=== PATIENT | female | born 1945 | race Caucasian/White ===

== ENCOUNTER 2016-07-02 05:46 | Day surgery (SDC) | payer OTHER ==
[~2016-07-02] VITALS: Ht 154.9 cm; Wt 74.9 kg
[2016-07-02 06:27] VITALS: Ht 154.9 cm; Wt 74.9 kg
[2016-07-02] MEDS ORDERED: MINO2.5T16 PO (06:45)
[2016-07-02] MEDS ORDERED: IBUP-1542 PO (06:45)
[2016-07-02] MEDS ORDERED: OMEP40CA6 PO (06:45)
[2016-07-02] MEDS ORDERED: MTF1000T PO (06:45)
[2016-07-02] MEDS ORDERED: LOSA1TAB19 PO (06:45)
[2016-07-02] MEDS ORDERED: NORT10CA2 PO (06:45)
[2016-07-02] MEDS ORDERED: GLIP-95 PO (06:45)
[2016-07-02 07:12] VITALS: BP 133/66; PULSE 78; RESP 15
[2016-07-02 07:35] VITALS: BP 139/63; PULSE 76; RESP 12
[2016-07-02 08:01] VITALS: BP 111/60; PULSE 84; RESP 20
--- NOTE | 2016-07-02 08:29 | GILP ---
DATE OF PROCEDURE: NAME OF PROCEDURES: Esophagogastroduodenoscopy and biopsy. SURGEON: Alexis Manuel MD PREOPERATIVE DIAGNOSIS: Abdominal pain. POSTOPERATIVE DIAGNOSES: 1. Gastroesophageal reflux disease. 2. Gastritis with erosions. 3. Gastric mucosal biopsies were taken for Helicobacter pylori test. INDICATION FOR THE PROCEDURE: Ms. Xena Luna is a 71-year-old female patient who had upper abdomi nal pain, not responding to therapy. Patient was scheduled for endoscopic examination for further e valuation. The procedure and possible complications were well explained to the patient, she understood and cons ented to the procedure. DESCRIPTION OF PROCEDURE: Under the influence of fentanyl and Versed, the gastroscope was carefully introduced into the esophagus and under direct vision, it was advanced to the stomach and through t he pylorus into the duodenal bulb and descending duodenum. FINDINGS: ESOPHAGUS: The patient had gastroesophageal reflux disease. STOMACH: The patient had gastritis with erosions. Gastric mucosal biopsies were taken for H. pylor i test. DUODENUM: Normal. The patient tolerated the procedure very well and there was no complication from the procedure. At the end of the procedures, she was awake with stable vital signs and she was discharged home to the care of her family. IMPRESSION: 1. Gastroesophageal reflux disease. 2. Gastritis with erosions. 3. Gastric mucosal biopsies were taken for Helicobacter pylori test. PLAN: 1. Continue omeprazole. 2. Add Zantac 300 mg p.o. at bedtime. 3. Await H. pylori test report. Dictated By: ALEXIS SHERIFF/JO-ANN Conf#: [id number] DID#: [id number]
[2016-07-02] MEDS ORDERED: FENTAnyl 50 MCG/ML VIAL ONE (09:45)
[2016-07-02] MEDS ORDERED: MIDAZOLAM 1 MG/ML 2 ML INJ ONE (09:46)
--- NOTE | 2016-07-03 10:02 | CONS ---
DATE OF ADMISSION: 07/02/2016 DATE OF CONSULTATION: I thank you very much for this kind referral. HISTORY OF PRESENT ILLNESS: Ms. Xena Luna is a 71-year-old female patient who has been referred to me for further evaluation of abdominal pain. The patient states she has got epigastric pain, whi ch is not completely responding to therapy with omeprazole. The patient had abdominal ultrasound an d CT scan and it was suspicious for a mass in the liver. The patient had a repeat CT scan with cont rast and the mass was identified as hemangioma of the liver. There is no past history of peptic ulc er disease. The patient has been taking ibuprofen and meloxicam for arthritis. There is no history of gallstones. She does not have any fever, chills or jaundice. The patient denies any change in the bowel habit or rectal bleeding. Patient had colonoscopy 4 years ago and no colon neoplasm was i dentified. She is hypertensive. She has diabetes. There is no history of heart disease or lung pr oblem. There is no history of kidney disease. She has history of depression. She is status post h ysterectomy. SOCIAL HISTORY: She is a nonsmoker. She does not abuse alcohol. FAMILY HISTORY: Negative for gastrointestinal tract neoplasm. ALLERGIES: THERE IS NO HISTORY OF SIGNIFICANT DRUG ALLERGY. MEDICATIONS: 1. Losartan. 2. Hydrochlorothiazide. 3. Metformin. 4. Glipizide. 5. Nortriptyline. 6. Ibuprofen. 7. Minoxidil. 8. Omeprazole. PHYSICAL EXAMINATION: VITAL SIGNS: She is 5 feet 1 inch tall and she weighs 163 pounds. HEART: Examination of the heart reveals normal first and second heart sounds. LUNGS: Clear. ABDOMEN: Soft without any distention. Liver and spleen are not palpable. There are no masses. Th ere is no focal tenderness. Normal bowel sounds are heard. CENTRAL NERVOUS SYSTEM: Does not reveal any focal neurological deficit. IMPRESSION: 1. Upper abdominal pain, not responding to therapy with omeprazole. 2. The patient has been taking ibuprofen and meloxicam for arthritis. 3. The patient had abdominal CT scan and ultrasound done and she was noted to have hemangioma of th e liver. 4. The patient had negative colonoscopy 4 years ago done by another drum attendant. 5. Hypertension. 6. Diabetes mellitus. 7. History of depression. 8. Status post hysterectomy. PLAN: 1. Continue omeprazole. 2. Endoscopic examination for further evaluation. The procedure and possible complications are well explained to the patient. She understands and con sents to the procedure. I thank you once again. With warmest personal regards, Dictated By: ALEXIS SHERIFF/JO-ANN Conf#: [id number] DID#: [id number] CC: ALEXIS SAUCEDA MD;*EndCC*
== END 2016-07-02 08:15 | disposition home or self-care (01) ==
LOC: GIL 05:46
PROVIDERS: ATTEND Internal Medicine Gastroenterology
DX: K21.9 Gastro-esophageal reflux disease without esophagitis (principal); K29.60 Other gastritis without bleeding; E11.9 Type 2 diabetes mellitus without complications; I10 Essential (primary) hypertension; F32.9 Major depressive disorder, single episode, unspecified
CPT/HCPCS: 43239; 82962; 87081; J2250; J3010